=== PATIENT | female | born 1990 | race Hispanic/Latino ===

== ENCOUNTER 2020-11-19 10:24 | Outpatient (CLI) | payer OTHER | END 2020-11-19 10:25 | disposition home or self-care (01) | LOC: CSHULT 10:24 | PROVIDERS: ATTEND Family Medicine | DX: R10.13 Epigastric pain (principal); R10.11 Right upper quadrant pain; K80.20 Calculus of gallbladder without cholecystitis without obstruction | CPT/HCPCS: 76705 ==